=== PATIENT | female | born 1950 | race Caucasian/White ===

== ENCOUNTER 2017-05-18 10:30 | Day surgery (SDC) | payer MEDICARE ==
[~2017-05-18] VITALS: Ht 152.4 cm; Wt 91.0 kg
[~2017-05-18 10:30] MED LIST: FERR159T2 PO; FLC50T PO; FLUT16SP NS; LEVO75TA4 PO; Lactated Ringer's 1,000 ML IV ONE; METO25TA99 PO; MULT-1018 PO; RIVA20TA PO
[2017-05-18] MEDS ORDERED: Succinylcholine Chloride 20 mg/mL 5 mL Inj ONE (10:31)
[2017-05-18] MEDS ORDERED: Propofol 10,000 mCg/mL 20 mL Inj ONE (10:31)
[2017-05-18] MEDS ORDERED: Ketamine 10 mg/mL 20 mL Inj ONE (10:31)
[2017-05-18] MEDS ORDERED: Glycopyrrolate 0.2 MG/ML 1mL Inj ONE (10:31)
[2017-05-18 11:27] VITALS: BP 136/68; PULSE 49; RESP 20; O2SAT 100
--- NOTE | 2017-05-18 12:04 | PCM.HPANE ---
Patient Data Date of Service: May 18, 2017 Surgeon Admitting Provider: Attending Provider:Steffen Hurst MD Primary Care Physician:Shira Ley PA-C Other Provider:Heron Gonzalez Anesthesia Reason for Visit Anemia Ht/WT & BMI Height (Feet): 5 Height (Inches): 0 Weight (Kilograms): 91 Body Mass Index 39.00 Allergies Coded Allergies: azithromycin (Verified Allergy, Intermediate, throat, 05/17/17) gatifloxacin (Verified Allergy, Intermediate, rash/throat scratchty, ) Past Anesthesia History Anesthesia History: Denies:: Abnormal Airway, Anesthesia Reactions, Difficult Intubation, Fam Anesthesia Reaction, Fam Malignant Hypertherm, Malignant Hyperthermia Diabetes History Hx Diabetes?: No MRSA MRSA: No Medications Blood Thinner: Xarelto Last Dose Blood Thinner: May 13, 2017 Home Meds Incl Beta Marleny: Yes Date Beta Marleny Taken: May 17, 2017 Time Beta Marleny Taken: 2100 Reported Medications Rivaroxaban (Xarelto)20 Mg Fofwtz20 Mg PO DAILY 05/17/17 Multivitamin (Multi Vitamin Daily)1 Each Tablet1 Each PO DAILY 30 Days Ref 0 05/17/17 Metoprolol Succinate ER 25 Mg Tab.er.24h12.5 Mg PO DAILY Ref 0 05/17/17 Levothyroxine 75 Mcg Oqjdha88 Mcg PO DAILY Ref 0 05/17/17 Ferrous Sulfate, Dried (Iron)159 Mg Tablet.er159 Mg PO DAILY 05/17/17 Fluticasone Propionate (Fluticasone Propionate Nasal)16 Gm [place].susp1 [place] NS BID #16 GM Ref 0 05/17/17 Flecainide Acetate 50 Mg Hpmbyr82 Mg PO BID 30 Days 05/17/17 History History of ENT Problems?: No HEENT History: Denies:: Abnormal Airway Difficult Intubation Hearing Problem Denture Type: None Teeth Condition: Tooth Decay Missing Teeth Hx of Heart Problems?: Yes Cardiovascular History: Positive for:: Atrial Fibrillation Denies:: Chest Pain Pacemaker Other Cardiac History: no syncopal episodes Hx of Respiratory Problem?: No Respiratory History: Denies:: Dyspnea Hx Neurologic Problems?: No Neurological History: Denies:: CVA Seizures TIA Hx of GI Problems?: Yes Gastrointestinal History: Positive for:: Gastroesphageal Reflux Denies:: Gastrointestinal Bleeding Rectal Bleeding Other GI Pertinent History: self-d/c nexium; IBS Hx of Problems?: No HX of Peritoneal Dialysis: No Female Hx: Denies:: Currently Skin History: Denies:: History Skin Disorders? Pressure Ulcers Hx Musculoskeletal Problems?: No Musculoskeletal History: Positive for:: Joint Replacement (Bilateral knees) Hx of Psycho/Social Problems?: No Hx Surgeries?: Yes (Gastric bypass, mark TKA, nirmal, appy, stomach staple) Hx Any Other Health Problems?: Yes History Blood Transfusions: Positive for:: Accept Blood Products? Denies:: Blood Transfusions Hx Diabetes: No Hx Alcohol Use: Yes (Seldom)Hx Substance Use: No Smoking Status: Never Smoker Stop/Bang Treated for Sleep Apnea?: No Do You Have a CPAP Machine?: No S-Snoring: Do You Snore Loudly: No T-Tired: feel tired, fatigued: No O-Obsered: Observed not breath: No P-Blood Pressure: treated: Yes B- Body Mass Index > 35 kg/m2: Yes A- Age over 50: Yes N- Neck Large Circumference: No G- Gender Male: No JAC Total Score: 3 JAC Risk Assessment: Low Risk, <3 Yes Risk Assessment Category Category 1A: Patient has history of documented sleep apnea, and HAS NOT received any narcotic, sedative or anesthesia administration during this stay. Category 1B: Patient has history of documented sleep apnea, and HAS received any narcotic , sedative or anesthesia administration during this stay Category 2: Patient has SUSPECTED Obstructive Sleep Apnea, and HAS received any narcotic , sedative or anesthesia administration during this stay. Category 3: Patient has SUSPECTED Obstructive Sleep Apnea and HAS NOT received narcotic, sedative or anesthesia administration during this stay. Category 4: Outpatient in Procedural Areas with known sleep apnea or who screen positive for High Risk via the STOP/BANG questionnaire. Exam Exam Vital Signs Vital Signs Date Time Temp Pulse Resp B/P Pulse Ox O2 Delivery O2 Flow Rate FiO2 05/18/17 11:27 49 20 136/68 100 Room Air General Appearance: Alert, Oriented X3, Cooperative, No Acute Distress HEENT/AIRWAY: MP 3, Neck Movement (from), Mouth Opening (3), Other (tmd3) Lungs: Normal Air Movement Heart: Exam Unremarkable, Regular Rate/Rhythm, Normal S1, Normal S2, No Murmurs /Rubs/Gallops Plan Impression Patient chart reviewed, patient interviewed and anesthestic plan with risks, benefits, and alternatives discussed, and informed consent obtained. NPO per Anesth. Guidelines: Yes ASA Physical Status: ASA3 Severe Disease Anesthetic Plan: TIVA Bene/Risks/Altern/Consents: Yes HP Complete Prior to Induction: Yes Rigoberto Liu MD May 18, 2017 12:04
[2017-05-18 13:02] VITALS: BP 84/67; PULSE 65; RESP 16; O2SAT 100
[2017-05-18 13:11] VITALS: BP 107/67; PULSE 61; RESP 16; O2SAT 100
[2017-05-18 13:21] VITALS: BP 122/62; PULSE 58; RESP 16; O2SAT 100
[2017-05-18] MEDS ORDERED: Lactated Ringer's 1,000 ML IV ONE (13:25)
--- NOTE | 2017-05-18 14:49 | ENDO ---
[address] [address] ENDOSCOPY PROCEDURE PATIENT: SUKHI AMBRIZ : 1950 MR#: [id number] ADMIT: 05/18/2017 JOB ID: [id number] DATE: 05/18/2017 PROCEDURE: Esophagogastroduodenoscopy. INDICATIONS: Anemia. The patient's ASA classification, Mallampati score and medications as per anesthesia note. INSTRUMENT USED: Gif H 180 J. PROCEDURE DETAILS: After informed consent was obtained, the patient was brought into the GI suite, where she was placed on oxygen via nasal cannula and monitored with continuous pulse oximeter, telemetry and blood pressure monitoring. A time-out was performed. Then, she was placed in the left lateral decubitus position and medications were administered for sedation. A bite block was placed. The standard EGD scope was inserted through the bite block and advanced to a gastrojejunal anastomosis. The scope was then advanced into the jejunal limb and was traversed to the length of the scope. The examined mucosa appeared unremarkable. Multiple random biopsies were obtained. The EGD scope was then withdrawn back to the anastomosis. and there was a short blind limb noted as well. Retroflexion was performed in the short gastric pouch which revealed a normal appearing cardia. The scope was then withdrawn and the GE junction was noted to be at 35 cm and appeared unremarkable. Normal appearing esophagus. IMPRESSION: Surgical changes consistent with patient's history of gastric bypass, otherwise normal examination. No findings to explain the patient's anemia. RECOMMENDATIONS: 1. Await biopsy results. 2. Proceed to colonoscopy. PROCEDURE PERFORMED: Colonoscopy. INDICATION: Anemia. Please see above for ASA classification, Mallampati score and medications. INSTRUMENT USED: PCF H 190 DL. PREPARATION QUALITY: Was good. PROCEDURE DETAILS: After completion of the EGD examination, the patient was turned and then a digital rectal examination was performed, which was unremarkable. The colonoscope was then inserted into the rectum and advanced under direct visualization to the terminal ileum which was identified by the presence of the ileocecal valve and villous appearing mucosa of the terminal ileum. Once the terminal ileum was reached, the colonoscope was withdrawn back to the rectum as the mucosa and lumen were examined. In the rectum, retroflexion was performed. Following retroflexion, remaining air in the rectum was suctioned, and the procedure was completed. FINDINGS: 1. In the descending colon, there was a diminutive polyp that was removed with cold biopsy forceps. 2. On the anterior rectal wall, there was what appeared to be a superficial ulcer with overlying friable mucosa. Multiple biopsies were obtained. The ulcer measured approximately 3-4 mm x 5 mm. The margins were not well-demarcated. IMPRESSION: 1. Sigmoid polyp. 2. Superficial rectal ulcer. RECOMMENDATIONS: 1. Await biopsy results. 2. Fiber rich diet. 3. Followup in GI clinic. COMPLICATIONS: None. ESTIMATED BLOOD LOSS: Less than 5 mL.
--- NOTE | 2017-05-21 19:40 | PATH ---
SURGICAL PATHOLOGY Attending Physician:Favian Ly CASE STATUS: Signed Out PATIENT NAME: SUKHI AMBRIZ PID: [id number] : 1950 DATE COLLECTED:05/18/2017 22:32 SPECIMEN: 1: Small Intestine/Bowel, Biopsy 2: Colon, Polyp 3: Rectum, Biopsy CLINICAL HISTORY: 1). SMALL BOWEL BIOPSY 2). DESCENDING COLON POLYP 3). RECTAL BIOPSY OF SUPERFICIAL ULCER FINAL DIAGNOSIS: 1.SMALL BOWEL, BIOPSY: SUPERFICIAL PORTIONS OF SMALL BOWEL MUCOSA WITH NO DIAGNOSTIC ABNORMALITY. Negative for active inflammation, dysplasia, and malignancy. 2.DESCENDING COLON, POLYP, BIOPSY: TUBULAR ADENOMA; NEGATIVE FOR HIGH-GRADE DYSPLASIA. 3.RECTAL BIOPSY OF SUPERFICIAL ULCER: SUPERFICIAL PORTIONS OF COLORECTAL MUCOSA WITH A MILDLY DISTORTED CRYPT ARCHITECTURE AND FOCAL ACTIVE INFLAMMATION. Negative for granulomas, dysplasia, and malignancy. Please see comment. ICD10 K63.5 NOTE: Part 3: There are rare neutrophils present within the lamina propria, but no definite cryptitis or crypt abscesses. The differential diagnosis includes NSAID use, an acute self-limited bacterial proctitis, the effect of sodium phosphate-containing bowel preparation solutions, and idiopathic inflammatory bowel disease, in the appropriate clinical setting. GROSS DESCRIPTION: The specimen is received in three formalin filled containers labeled with the patient's name. 1). The specimen is labeled "small bowel" and consists of 5 portions of tissue which aggregate to 0.3 x 0.3 x 0.2 CM. The specimen is entirely submitted in cassette 1A. 2). The specimen is labeled "descending colon polyp" and consists of a 0.3 x 0.2 x 0.2 CM portion of tissue which is entirely submitted in cassette 2A. 3). The specimen is labeled "rectum" and consists of 2 portions of tissue which aggregate to 0.2 x 0.2 x 0.1 CM. The specimen is entirely submitted in cassette 3A. 05/18/2017DC MICRO DESCRIPTION: See diagnosis. ICD-9 CODES: CPT CODES: 1: 55174 2: 05693 3: 37318 Electronically Signed Out Isadora Mariscal MD [facility] Pathology [facility], [place] [address] Technical component performed at [facility], [address] [place] [address] Ave[address], [place], [address]
== END 2017-05-18 23:59 | disposition home or self-care (01) ==
LOC: END 10:30
PROVIDERS: ATTEND Internal Medicine Gastroenterology
DX: D12.4 Benign neoplasm of descending colon (principal); K62.6 Ulcer of anus and rectum; D50.9 Iron deficiency anemia, unspecified; I25.10 Atherosclerotic heart disease of native coronary artery without angina pectoris; I48.0 Paroxysmal atrial fibrillation; I35.0 Nonrheumatic aortic (valve) stenosis; E03.9 Hypothyroidism, unspecified; K58.1 Irritable bowel syndrome with constipation; K21.9 Gastro-esophageal reflux disease without esophagitis; Z98.84 Bariatric surgery status; Z79.01 Long term (current) use of anticoagulants; Z79.899 Other long term (current) drug therapy; Z96.653 Presence of artificial knee joint, bilateral
CPT/HCPCS: 43239; 45380; J2250; J7120